=== PATIENT | male | born 2005 | race African-American/Black ===

== ENCOUNTER 2025-04-26 00:10 | Emergency (ER) | payer SELFPAY ==
[~2025-04-26] VITALS: Ht 180.3 cm; Wt 65.9 kg
[2025-04-26 00:21] VITALS: TEMP 98.9
[2025-04-26 00:42] VITALS: BP 145/93; PULSE 106; RESP 20; O2SAT 99
[2025-04-26] MEDS: ACETAMINOPHEN 325 MG TABLET PO ONE (02:01)
[2025-04-26] MEDS ORDERED: CYCL-448 PO (04:30)
== END 2025-04-26 04:42 | disposition home or self-care (01) ==
LOC: EMS 00:53
DX: S16.1XXA Strain of muscle, fascia and tendon at neck level, initial encounter (principal); Z88.0 Allergy status to penicillin; V43.52XA Car driver injured in collision with other type car in traffic accident, initial encounter; Y93.89 Activity, other specified; Y92.410 Unspecified street and highway as the place of occurrence of the external cause; Y99.8 Other external cause status
CPT/HCPCS: 72040; 99284; 73030-TC; Z7502; Z7610

== ENCOUNTER 2025-05-23 16:40 | Emergency (ER) | payer SELFPAY ==
[~2025-05-23] VITALS: Ht 180.3 cm; Wt 68.2 kg
[~2025-05-23 16:40] MED LIST: CYCL-448 PO
[2025-05-23 16:59] VITALS: BP 140/90; PULSE 77; RESP 20; TEMP 98.6; O2SAT 99
[2025-05-23] MEDS: ACETAMINOPHEN/CODEINE 300-30 MG TABLET PO ONE (17:53)
[2025-05-23] MEDS: IBUPROFEN 600 MG TABLET PO ONE (17:53)
[2025-05-23] MEDS: BACITRACIN 0.9 GM PACKET OINTMENT TP ONE (18:44)
== END 2025-05-23 19:55 | disposition home or self-care (01) ==
LOC: EMS 17:25
DX: S68.120A Partial traumatic metacarpophalangeal amputation of right index finger, initial encounter (principal); Z88.0 Allergy status to penicillin; W54.0XXA Bitten by dog, initial encounter; Y93.89 Activity, other specified; Y92.89 Other specified places as the place of occurrence of the external cause; Y99.8 Other external cause status
CPT/HCPCS: 99284; 73140-TC; Z7502; Z7610